=== PATIENT | male | born 1985 | race Caucasian/White ===

== ENCOUNTER 2025-06-20 20:42 | Observation (INO) | payer OTHER, SELFPAY ==
[2025-06-20] VITALS (8 sets, daily range): BP systolic 122–161; BP diastolic 75–94; BMI 32.0
[2025-06-20 11:34] LABS: INR 1.14; PT 14.7 Sec (11.4-14.6)
[2025-06-20 11:40] LABS: Hematocrit 44.7 % (39.0-52.0); Hemoglobin 15.2 g/dL (13.0-18.0); Mean Corp Hgb Conc. 34.0 g/dL (33.0-37.0); Mean Corpuscular Volume 87.1 fL (80.0-94.0); Nucleated Red Blood Cells % 0 % (-); Platelet Count 296 10^3/uL (130-400); Red Cell Dist. Width 13.2 % (11.5-14.5)
[2025-06-20 11:48] LABS: ALT (SGPT) 24 U/L (0-50); AST (SGOT) 22 U/L (17-59); Albumin 4.7 g/dl (3.5-5.0); Alkaline Phosphatase 45 U/L (38-126); Blood Urea Nitrogen 15 mg/dl (9-20); Calcium 9.6 mg/dl (8.4-10.2); Carbon Dioxide 28 mmol/L (22-30); Chloride 103 mmol/L (98-107); Glucose 93 mg/dl (70-99); Potassium 4.1 mmol/L (3.5-5.1); Sodium 136 mmol/L (135-145); Total Protein 7.7 g/dl (6.3-8.2); eGFR > 60.00
[2025-06-20 11:59] LABS: Troponin I < 0.012 ng/ml
[2025-06-20] MEDS: TORADOL 30 MG IV (16:27)
[2025-06-20 16:49] LABS: Lipase 76 U/L (23-300)
[2025-06-20 16:50] LABS: COVID-19 Antigen Negative (Negative); D-Dimer < 0.27 ug/mlFEU (0.00-0.50)
[2025-06-20 16:57] LABS: Troponin I 0.017 ng/ml
--- NOTE | 2025-06-20 17:47 | ED.GENMED ---
History of Present Illness
<Kaim Pabon PA-C - Last Filed: 06/21/25 01:03>
General
Chief Complaint: Chest Pain
Source: patient
Exam Limitations: none
Time Seen by Provider: 06/20/25 15:58
Nursing documentation reviewed up to this point in time: agreed with
History of Present Illness
History of Present Illness:
see MDM
Phy Exam
<Kami Pabon PA-C - Last Filed: 06/21/25 01:03>
Physical Exam
Physical Exam:
see MDM
Scores
<Kami Pabon PA-C - Last Filed: 06/21/25 01:03>
Heart Score for Chest Pain Patients
STEMI patient?: No
History: Moderately Suspicious
ECG: Nonspecific Repolarization
Age: </= 45 years
Risk Factors: No Risk Factors
Troponin: </= Normal Limit
Heart Score for Chest Pain Patients: 2
Heart Score Risk: 2.5% MACE over next 6 weeks
<Tim Castro MD - Last Filed: 06/23/25 08:04>
Heart Score for Chest Pain Patients
Heart Score for Chest Pain Patients: 2
Heart Score Risk: 2.5% MACE over next 6 weeks
Course
<Kami Pabon PA-C - Last Filed: 06/21/25 01:03>
Orders/Labs/Results
Orders:
Orders
06/20/25 Breakfast
Regular
At Your Request: Full Participation
06/20/25 10:48
EKG [Electrocardiogram (*1)] Urgent
Reason for Study: Chest Pain
EKG- Treatment ONCE
06/20/25 10:54
CR Chest - 2 Views Urgent
Comment:
Reason For Exam: CP
06/20/25 11:03
Complete Blood Count/With Diff Urgent
Comprehensive Metabolic Panel Urgent
Lipase Urgent
Comment: ADD ON
Prothrombin Time Urgent
Troponin I Urgent
06/20/25 16:11
Add On- LAB Urgent
Tests Added?: lipase
Electrocardiogram (*1) Urgent
Reason for Study: Chest Pain
EKG- Treatment ONCE
Ketorolac [Toradol] 30 mg IV NOW STA
06/20/25 16:25
COVID-19 Antigen Urgent
Source: Nasal Swab
D-Dimer Urgent
Troponin I Urgent
06/20/25 18:09
Colchicine 0.6 mg PO NOW STA
06/20/25 19:52
Admit/Transfer Patient As Directed
Co-Sign Provider:
Level of Care: Observation services
Assign to:: Telemetry
Physician / Group: Torsten
Diagnosis: Pericarditis
Reason for Telemetry: Chest Pain syndromes
Date to Stop Telemetry: 06/22/25
Time to Stop Telemetry: 11:00
PRN Pain Medication Management As Directed
May give lesser potent ordered pain med per pt: Yes
preference::
Protocol:: Medication orders for pain may be administered in a
manner that supports deferring to patient preference
when the pt is:
- Requesting an ordered lesser potent pain medication.
Least to most potent pain medications are defined
as: acetaminophen < NSAID < tramadol < opioids
(morphine, oxycodone, hydromorphone).
- Requesting a lesser dose of the same medication IF
ORDERED.
- Requesting a less intrusive route of administration
if both routes are prescribed by the provider (PO <
IV).
06/20/25 19:53
Code Status As Directed
Resuscitation Status: Full Code
06/20/25 21:12
Acetaminophen [Tylenol] 650 mg PO Q4HPRN PRN
Ketorolac [Toradol] 15 mg IV Q6HPRN PRN
06/20/25 21:12
CARDIOLOGY CONSULT Routine
Consulting Provider: Rafita Jacob
Was physician already notified: Yes
Reason for consult: Pericarditis
TSH Reflex To Free T4 Routine
Activity As Directed
Activity Level: Ambulate
EKG with chest pain [ECG as needed] As Directed
ECG as needed for:: Chest Pain
Pneumatic Compression Sleeves As Directed
Type: Knee high
Vital Signs As Directed
Frequency: Per unit guidelines
Oxygen Therapy [O2 Therapy] [RESP] Routine
Titrate/Wean O2 to maintain O2 sat greater than (%): 94
DX Deep Vein Thrombosis Video Routine
06/20/25 22:00
Ibuprofen [Motrin] 800 mg PO TID
06/21/25 06:00
Echo 2D MMode Doppler [Echo 2D MMode Color/Doppler] IN AM
Reason for Study: Pericarditis
06/21/25 06:41
Basic Metabolic Panel IN AM
Cardiovascular Evaluation IN AM
Complete Blood Count/No Diff IN AM
06/21/25 08:00
Colchicine 0.6 mg PO BID
Pantoprazole [Protonix] 40 mg PO DAILY
06/22/25 11:00
DC Protocol for Telemetry ONCE
Abnormal Lab Results
06/20/25
11:03
MPV 10.7 H fL
(7.4-10.4)
Absolute Monos (auto) 0.8 H 10^3/uL
(0.1-0.6)
Monocytes % 10.9 H %
(1.7-9.3)
Eosinophils % 7.9 H %
(0-6)
PT 14.7 H Sec
(11.4-14.6)
06/20/25 11:03
06/20/25 11:03
Vital Signs
Initial and Last Documented VS:
Initial Vital Signs
Temp Pulse Resp BP Pulse Ox
97.7 F 75 17 161/94 99
06/20/25 10:53 06/20/25 10:53 06/20/25 10:53 06/20/25 10:53 06/20/25 10:53
Last Documented Vital Signs
Temp Pulse Resp BP Pulse Ox
97.9 F 69 16 128/72 98
06/21/25 12:00 06/21/25 12:00 06/21/25 12:00 06/21/25 12:00 06/21/25 12:00
<Tim Castro MD - Last Filed: 06/23/25 08:04>
Orders/Labs/Results
Orders:
Orders
06/20/25 Breakfast
Regular
At Your Request: Full Participation
06/20/25 10:48
EKG [Electrocardiogram (*1)] Urgent
Reason for Study: Chest Pain
EKG- Treatment ONCE
06/20/25 10:54
CR Chest - 2 Views Urgent
Comment:
Reason For Exam: CP
06/20/25 11:03
Complete Blood Count/With Diff Urgent
Comprehensive Metabolic Panel Urgent
Lipase Urgent
Comment: ADD ON
Prothrombin Time Urgent
Troponin I Urgent
06/20/25 16:11
Add On- LAB Urgent
Tests Added?: lipase
Electrocardiogram (*1) Urgent
Reason for Study: Chest Pain
EKG- Treatment ONCE
Ketorolac [Toradol] 30 mg IV NOW STA
06/20/25 16:25
COVID-19 Antigen Urgent
Source: Nasal Swab
D-Dimer Urgent
Troponin I Urgent
06/20/25 18:09
Colchicine 0.6 mg PO NOW STA
06/20/25 19:52
Admit/Transfer Patient As Directed
Co-Sign Provider:
Level of Care: Observation services
Assign to:: Telemetry
Physician / Group: Torsten
Diagnosis: Pericarditis
Reason for Telemetry: Chest Pain syndromes
Date to Stop Telemetry: 06/22/25
Time to Stop Telemetry: 11:00
PRN Pain Medication Management As Directed
May give lesser potent ordered pain med per pt: Yes
preference::
Protocol:: Medication orders for pain may be administered in a
manner that supports deferring to patient preference
when the pt is:
- Requesting an ordered lesser potent pain medication.
Least to most potent pain medications are defined
as: acetaminophen < NSAID < tramadol < opioids
(morphine, oxycodone, hydromorphone).
- Requesting a lesser dose of the same medication IF
ORDERED.
- Requesting a less intrusive route of administration
if both routes are prescribed by the provider (PO <
IV).
06/20/25 19:53
Code Status As Directed
Resuscitation Status: Full Code
06/20/25 21:12
Acetaminophen [Tylenol] 650 mg PO Q4HPRN PRN
Ketorolac [Toradol] 15 mg IV Q6HPRN PRN
06/20/25 21:12
CARDIOLOGY CONSULT Routine
Consulting Provider: Rafita Jacob
Was physician already notified: Yes
Reason for consult: Pericarditis
TSH Reflex To Free T4 Routine
Activity As Directed
Activity Level: Ambulate
EKG with chest pain [ECG as needed] As Directed
ECG as needed for:: Chest Pain
Pneumatic Compression Sleeves As Directed
Type: Knee high
Vital Signs As Directed
Frequency: Per unit guidelines
Oxygen Therapy [O2 Therapy] [RESP] Routine
Titrate/Wean O2 to maintain O2 sat greater than (%): 94
DX Deep Vein Thrombosis Video Routine
06/20/25 22:00
Ibuprofen [Motrin] 800 mg PO TID
06/21/25 06:00
Echo 2D MMode Doppler [Echo 2D MMode Color/Doppler] IN AM
Reason for Study: Pericarditis
06/21/25 06:41
Basic Metabolic Panel IN AM
Cardiovascular Evaluation IN AM
Complete Blood Count/No Diff IN AM
06/21/25 08:00
Colchicine 0.6 mg PO BID
Pantoprazole [Protonix] 40 mg PO DAILY
06/22/25 11:00
DC Protocol for Telemetry ONCE
Abnormal Lab Results
06/20/25
11:03
MPV 10.7 H fL
(7.4-10.4)
Absolute Monos (auto) 0.8 H 10^3/uL
(0.1-0.6)
Monocytes % 10.9 H %
(1.7-9.3)
Eosinophils % 7.9 H %
(0-6)
PT 14.7 H Sec
(11.4-14.6)
06/20/25 11:03
06/20/25 11:03
Vital Signs
Initial and Last Documented VS:
Initial Vital Signs
Temp Pulse Resp BP Pulse Ox
97.7 F 75 17 161/94 99
06/20/25 10:53 06/20/25 10:53 06/20/25 10:53 06/20/25 10:53 06/20/25 10:53
Last Documented Vital Signs
Temp Pulse Resp BP Pulse Ox
97.9 F 69 16 128/72 98
06/21/25 12:00 06/21/25 12:00 06/21/25 12:00 06/21/25 12:00 06/21/25 12:00
<Kami Pabon PA-C - Last Filed: 06/21/25 01:03>
MDM/Problems Addressed
Differential Diagnosis Includes:
see MDM
MDM/Problems Addressed:
Note:
CHIEF COMPLAINT(S)
Chest pain and shortness of breath
HISTORY OF PRESENT ILLNESS
The patient is a 40-year-old male who presents with chest pain and shortness of breath. He reports that the chest pain began on 3 days ago and describes it as mild and located centrally. The pain initially seemed posture-related, but on Thursday, when
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 The patient also reported the development of wheezing and increased difficulty breathing, particularly with exertion, such as carrying mailbags. He experiences pain when taking a deep
breath, although it is not severely painful, and it remains constant.
The patient noted an onset of nausea the day before the pain began, which led to vomiting, but he was able to attend work the following day. He reports episodes of diarrhea over the weekend, though he is able to control it and reach the bathroom
without incidents of incontinence. The diarrhea seems stable without changes in frequency or volume, and there is no presence of blood or black stools.
The pain intensity varies, increasing to a level of significant discomfort by the end of a work shift, particularly if carrying heavy loads. However, the pain subsides slightly when at rest, with a self-rated severity of two out of ten when lying
down.
There have been no recent injuries, and he denies any recent travels or periods of immobility that might suggest other causes such as a deep vein thrombosis. He also denies fever or chills but reports a slight cough. The patient does not smoke but
uses chewing tobacco. There is no significant family history of heart disease.
CHRONIC MEDICAL CONDITIONS SIGNIFICANTLY AFFECTING CARE
No chronic medical conditions were reported by the patient. This is his first visit to the emergency department.
SOCIAL HISTORY
The patient uses chewing tobacco but does not smoke.
PHYSICAL EXAM
GENERAL: Alert , in no apparent distress
EYE: pupils equal and reactive
NECK: Supple
ENT: o/p clr, mmm.
CARDIAC: Regular rate and rhythm .
LUNGS: Clear breath sounds bilaterally, no acute respiratory distress, no wheezes/rales/rhonchi
ABDOMEN: Soft, without focal tenderness, no r/g, no cvat, normal bowel sounds
NEUROLOGICAL: Alert and oriented, no focal neuro deficits
SKIN: Warm and dry, skin intact.
MUSCULOSKELETAL: No edema, well perfused. neg carey's sign
PSYCH: Normal and appropriate interaction.
- Nursing notes reviewed and vital signs reviewed.
PLAN
- Initiate intravenous access and obtain blood samples for laboratory analysis to rule out myocardial infarction, pulmonary embolism, and pancreatitis.
- Perform an electrocardiogram (ECG) to further evaluate cardiac status.
- Consider using non-narcotic pain medication such as Toradol to manage potential musculoskeletal inflammation.
- If emergent conditions are ruled out, arrange an outpatient follow-up with a rail track maintainer to investigate potential cardiac causes for the symptoms.
- Offer ibuprofen or acetaminophen for pain relief, which the patient has the option to decline.
DIFFERENTIAL DIAGNOSIS
The Differential Diagnosis includes, in no particular order and is not limited to:
1. Myocardial infarction
2. Pulmonary embolism
3. Musculoskeletal pain (e.g., costochondritis)
4. Gastroesophageal reflux disease (GERD)
5. Pneumonia
6. Viral respiratory infection
7. Pleural effusion
8. Pericarditis
9. Panic attack or anxiety-related dyspnea
10. Aortic dissection
40 y/o M
chest discomfort, pleuritic, worse with psition and exertion
no cardiac history
no smoking
no FHX of cad
mild viral symptoms
1st ekg has artifact but no concerning findings
first trop 0.012
pending d dimer, 2nd trop/ekg, cxr
CARE-UPDATE
06/20/25 - 17:48
The patients chest discomfort and shortness of breath have slightly worsened over the past two to three days. He exhibits slight rattling in the lungs and diarrhea, suggestive of a possible viral syndrome but without cough or fever. The first EKG
displayed a artifact in V1 and V2 with no T-wave inversions. A notable increase was observed in troponin levels from 0.012 to 0.017, alongside minimally diffusely elevated ST segments. The Emergency Department attending suggested consulting
cardiology, suspecting viral pericarditis, and the patient received toradol. Plan includes observation under cardiology guidance, considering colchicine, with a negative D-Dimer result. The patients blood pressure remains normal, and he does not
require supplemental oxygen, appearing comfortable at rest. Lung hodgson are clear, and there is no edema present. No heart murmur detected.
<Kami Pabon PA-C - Last Filed: 06/21/25 01:03>
*Pulse Oximetry
SaO2: 97
Oxygen Mode of Delivery: Room air
Patient hypoxic: no (97)
*Critical Care Note
Total Time (30-74mins, 75-104mins- exclusive of procedures): Not Applicable
ED Attending Note
<Kami Pabon PA-C - Last Filed: 06/21/25 01:03>
-
Portions of this chart may have been created with voice recognition software.� Occasional wrong word or��sound alike� substitutions may have occurred due to the inherent limitations of voice recognition software.
<Tim Castro MD - Last Filed: 06/23/25 08:04>
ED Attending Note
Patient seen and examined by attending physician: Yes
ED Attending Note:
Patient without any significant past medical history, presents to ED secondary to intermittent chest pain along with shortness of breath over the past 3 days. 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 Chest
pain described as sharp, in the middle chest, nonradiating, worse with movement and deep inspiration. Denies associated dizziness/weakness/diaphoresis/nausea. Denies back pain. Denies leg pain or swelling. Denies recent travel or surgery.
Patient does report having had diarrhea yesterday. Denies sick contact. Denies previous history of similar symptoms. Patient denies smoking or drinking alcohol. There is no family history of early heart disease or blood clots.
Physical Exam
General: mild distress, not acutely ill. afebrile
Head: nc/at. eomi
Neck: supple. normal range of motion
Heart: s1/s2 regular rate and rhythm
Lungs: no acute respiratory distress. clear bilaterally. chest wall nontender to palpation
Abdomen: normal bowel sounds. not tender.
Neuro: alert and oriented x 3. no focal neurological deficits
Skin: no rash
Psychiatric: well kept. interactive and cooperative
Extremities: no edema. no calf tenderness.
History, exam, and EKG concerning for potential pericarditis. Repeat troponin with minimal elevation. As patient remains symptomatic, patient will be admitted for further evaluation treatment. Discussed with on-call cardiology, , who
agrees with plan for admission to hospitalist service on colchicine.
Discharge Plan
Departure
Patient Disposition: Admit
Date of Disposition: 06/20/25
Time of Disposition: 18:09
Admit to: Telemetry
Presentation/result/management discussed w/ accepting MD/DO: Hospitalist
Condition: Fair
Covid-19: Not Applicable
Discharge Problem:
Chest pain, Pericarditis
Interventions
Interventions:
*General Assessment Last Done: 06/20/25 10:55
*Neglect/Abuse Screening Last Done: 06/20/25 10:55
*ED COVID-19 Vaccine History Last Done: 06/20/25 10:55
*ED Influenza Vaccine History Last Done: 06/20/25 10:55
[facility] Risk Assessment Tool Last Done: 06/20/25 19:24
*Risk Screen - Suicide (C-SSRS) Last Done: 06/20/25 10:55
*Nursing Disposition Last Done: 06/20/25 21:08
ED- Cardiac Assessment Last Done: 06/20/25 16:30
Discharge Date and Time
Discharge Date/Time: 06/20/25 21:08
[2025-06-20] MEDS: COLCHICINE 0.6 MG PO (18:38)
--- NOTE | 2025-06-20 20:45 | HPS.HSE ---
Family Physician
-
Family Physician: Judy Faith
Chief Complaint
-
Chest pain
History of Present Illness
Patient is a 40y M with no significant PMH who presents to ED complaining of chest pain. Patient states that he started with left-sided chest pain on Thursday. Pain seemed positional in nature and he thought it may be due to his posture. He
has had some mild nasal congestion and some loose stools recently. No fevers / chills, cough, sore throat, etc. His chest discomfort seemed to increase over the past few days. Notably worse with activity, deep breathing and certain movements.
Patient notes that he felt lightheaded at times during activity. 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
Medical History
Past Medical History
Past Medical History: Reports None
Past Surgical History: Reports None
Social History
Tobacco: Non-smoker (uses smokeless tobacco, 'snuff')
Alcohol: None
Drug: None
Family History
Family History: Not pertinent
Allergies / Home Medications
Allergies reflects when Allergies were last updated in [facility].
Home Medications with original date entered in [facility]
Allergy/Medication List:
Allergies
Allergy/AdvReac Type Severity Reaction Status Date / Time
No Known Allergies Allergy Unverified 06/20/25 10:54
Home Medications
No Meds [No Current Medications] 06/20/25
Review of Systems
-
History Source: Patient
A 12 point ROS was completed and negative except as noted: Yes
Constitutional: Denies Fever or Chills
Respiratory: Reports Trouble Breathing; Denies Cough
Cardiac: Reports Chest Pain; Denies Diaphoresis, Palpitations or Syncope
Abdomen/GI: Denies Abdominal Pain, Nausea, Vomiting or Diarrhea
: Denies Dysuria or Frequency
Musculoskeletal: Denies Joint Pain or Edema
Neurological: Denies Dizzy or Headache
Psych: Denies Depression or Anxiety
Physical Exam
Vital Signs
Vital Signs
Temp Pulse Resp BP Pulse Ox
97.7 F 85 17 128/84 97
06/20/25 10:53 06/20/25 20:15 06/20/25 10:53 06/20/25 20:00 06/20/25 20:15
Physical Exam
General: Other (40y M in no acute distress.)
HEENT: Moist mucous membranes and PERRLA
Respiratory: Clear; No Wheezes, Rales or Rhonchi
Cardiac: S1/S2 and Regular Rhythm; No Murmur
GI: Soft, Non Tender, Non Distended and Normal Bowel Sounds
Musculoskeletal: No Clubbing, No Cyanosis and No Edema
Neuro: AO x 3
Laboratory Results
-
06/20/25 11:03
06/20/25 11:03
Laboratory Results
PT 14.7 Sec (11.4-14.6) H 06/20/25 11:03
INR 1.14 06/20/25 11:03
Total Bilirubin 0.5 mg/dl (0.2-1.3) 06/20/25 11:03
AST 22 U/L (17-59) 06/20/25 11:03
ALT 24 U/L (0-50) 06/20/25 11:03
Alkaline Phosphatase 45 U/L (38-126) 06/20/25 11:03
Troponin I 0.017 ng/ml D 06/20/25 16:25
Lipase 76 U/L (23-300) 06/20/25 11:03
Impression/Plan
-
A/P: Patient is a 40y M with no significant PMH who presents to ED complaining of chest pain x 4 days.
Pericarditis
- Observe overnight for further evaluation and treatment.
- Begin NSAIDs and colchicine.
- Cardiology evaluation.
- Echo in the AM.
- Follow for clinical improvement.
- Follow serial troponin to peak.
DVT Prophylaxis: SCDs
GI Prophylaxis: Start daily PPI while on NSAIDs + colchicine.
Code Status: Full
--- NOTE | 2025-06-20 21:49 | PTCARENOTE ---
Pt admit from ED via stretcher. Ambulated into room independently. Pt states he's had 3 episodes of diarrhea today which is abnormal for him. Placed on enhanced precautions. [facility] notified.
[2025-06-20] MEDS: MOTRIN 800 MG PO (22:02)
[2025-06-20 23:22] LABS: Troponin I 0.014 ng/ml
[2025-06-21 03:05] VITALS: BP 136/78
[2025-06-21 07:04] LABS: Hematocrit 42.7 % (39.0-52.0); Hemoglobin 14.4 g/dL (13.0-18.0); Mean Corp Hgb Conc. 33.7 g/dL (33.0-37.0); Mean Corpuscular Volume 87.7 fL (80.0-94.0); Platelet Count 259 10^3/uL (130-400); Red Cell Dist. Width 13.2 % (11.5-14.5)
[2025-06-21 07:19] LABS: Blood Urea Nitrogen 20 mg/dl (9-20); Calcium 8.8 mg/dl (8.4-10.2); Carbon Dioxide 26 mmol/L (22-30); Chloride 103 mmol/L (98-107); Estimated Creatinine Clearance > 125 ml/min; Glucose 98 mg/dl (70-99); HDL Cholesterol 45 mg/dl; LDL Cholesterol, Calculated 155 mg/dl; Potassium 4.3 mmol/L (3.5-5.1); Sodium 135 mmol/L (135-145); Very Low Density Lipoprotein 12 mg/dl (0-30); eGFR > 60.00
[2025-06-21] MEDS: COLCHICINE 0.6 MG PO (07:36)
[2025-06-21] MEDS: MOTRIN 800 MG PO (07:36)
[2025-06-21] MEDS: PROTONIX 40 MG PO (07:36)
[2025-06-21 08:00] VITALS: BP 121/75
--- NOTE | 2025-06-21 08:30 | W.PN.HOSP.TC ---
Today's Communication/Plan
-
Discharge planning today
Assessment / Plan
Assessment / Plan
Physical exam:
General: Well Developed, Well Nourished and No Apparent Distress
HEENT: Normocephalic, Atraumatic and Moist Mucous Membranes
Respiratory: Clear to Auscultation; Negative Wheezes, Rales or Rhonchi
Cardiac: Regular Rhythm and S1/S2
GI: Soft, Nontender and Nondistended
Musculoskeletal: No Clubbing, No Cyanosis and No Edema
Neuro: Awake, Alert and Oriented, no neurological deficits
Psych: Calm
A/P:
Pericarditis
- Observe overnight for further evaluation and treatment.
- Begin NSAIDs and colchicine.
- Cardiology evaluation appreciated
- Echo reviewed results
- Cardiology cleared her for discharge today
DVT Prophylaxis: SCDs
GI Prophylaxis: Start daily PPI while on NSAIDs + colchicine.
Code Status: Full
Anticipated Discharge: Today
Subjective/Interval History
-
Date of Service: June 21, 2025
Patient pain much better overall.
Objective Data
-
Labs:
Laboratory Results
06/21/25
06:41
WBC 7.9
Hgb 14.4
Hct 42.7
Plt Count 259
Sodium 135
Potassium 4.3
Chloride 103
Carbon Dioxide 26
BUN 20
Creatinine 0.8
Glucose 98
Calcium 8.8
Vital Signs:
Vital Signs
Temp Pulse Resp BP Pulse Ox
98.0 F 72 16 121/75 98
06/21/25 08:00 06/21/25 08:00 06/21/25 08:00 06/21/25 08:00 06/21/25 08:00
--- NOTE | 2025-06-21 08:49 | CON.CAR ---
Addendum entered and electronically signed by Rafita Jacob DO 06/21/25 14:21:
I saw and examined the patient.
The Tank Setter Helper's note was reviewed and I agree with the note.
Comment:
Plan:
Reviewed pericarditis with patient and his father. He was given patient literature regarding pericarditis
Continue colchicine 0.6 mg twice daily for 3 months.
Transition Motrin to 600 mg twice daily. for 1 week
Echo was reviewed and unremarkable.
He will return to work on June 26 discussed restrictions.
Outpatient cardiac follow-up arranged
Discussed with primary service.
Original Note:
Consultation
Consultation Request
Date/Time Consultation Requested: 06/20/2025 at 2112
Date/Time Consultation Performed: 06/21/2025 at 0835
Requesting Provider: Dr. Perez
Performing Provider: Dr. Jacob
Reason for Consultation: Chest pain
Medical History
-
History of Present Illness:
Patient came to the ER yesterday with chest pain and was admitted with possible pericarditis and now cardiology is consulted. 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
discomfort in the left side of his chest, it seemed to be positional. Then he went to work on Thursday where he walks a postal route in [place] and while out in the cold and while walking his route he felt similar pain on the left side of his chest
that got worse with activity during the day. Patient felt like he could not take a deep breath, deep breath would cause more pain. He felt better with resting. Patient also reports increased discomfort with prolonged conversations. Patient has
never had a discomfort like that before. Patient did not notice that his pain was necessarily positional and denies pain with laying flat. Patient told his father about his symptoms and he was urged to come to the ER and so he did yesterday.
Troponins have been serially normal. ECG reviewed by me looks like SR without acute ST changes. Patient reports improved discomfort since admission following initiation of ibuprofen and colchicine. Patient also reports having a mild GI bug
described as diarrhea without vomiting in the last week. No fevers or chills.
PMH:
Hyperlipidemia
Chewing tobacco use
Past Medical History
Past Medical History: Other (In HPI)
Past Surgical History: None
Social History
Tobacco: Other (Patient uses chewing tobacco)
Alcohol: None
Drug: None
Personal: Single
Living: Alone
Employment: Employed (mail carrier, he walks his route and [place])
Family History
Family History: Cancer (Family history of prostate cancer) and Other (No family history of CAD, he is the oldest of 5)
Allergies / Home Medications
Allergy/AdvReac Type Severity Reaction Status Date / Time
No Known Allergies Allergy Unverified 06/20/25 10:54
�Medication �Instructions �Recorded �Confirmed �Type
No Meds [No Current Medications] 06/20/25 06/20/25 History
Review of Systems
-
History Source: Patient
All other systems: Negative unless noted
Physical Exam
Vital Signs
Temp Pulse Resp BP Pulse Ox
98.0 F 72 16 121/75 98
06/21/25 08:00 06/21/25 08:00 06/21/25 08:00 06/21/25 08:00 06/21/25 08:00
GEN: NAD, AAO x 3
HEENT: EOMI, MMM
LUNGS: RA. CTA B/L, no wheeze
CV: SR on telemetry. Reg, S1/S2, no murmur
ABD: ND
EXT: No edema B/L LE. +2 PT pulses B/L
NEURO: Gross non-focal
SKIN: No rash
Lab Results
06/21/25 06:41
06/21/25 06:41
Troponin I 0.014 ng/ml 06/20/25 22:30
Impression / Plan
-
PCP: Dr. Faith at [facility]
Cardiology: None prior to admission
Impression:
Admitted with chest pain 06/20/2025
Chest pain, possible pericarditis
Hyperlipidemia
Chewing tobacco use
Echo 06/21/2025: Study pending
Plan:
-Patient came to the ER yesterday with chest pain and was admitted with possible pericarditis and now cardiology is consulted. 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
discomfort in the left side of his chest, it seemed to be positional. Then he went to work on Thursday where he walks a postal route in [place] and while out in the cold and while walking his route he felt similar pain on the left side of his chest
that got worse with activity during the day. Patient felt like he could not take a deep breath, deep breath would cause more pain. He felt better with resting. Patient also reports increased discomfort with prolonged conversations. Patient has
never had a discomfort like that before. Patient did not notice that his pain was necessarily positional and denies pain with laying flat. Patient told his father about his symptoms and he was urged to come to the ER and so he did yesterday.
Troponins have been serially normal. ECG reviewed by me looks like SR without acute ST changes. Patient reports improved discomfort since admission following initiation of ibuprofen and colchicine. Patient also reports having a mild GI bug
described as diarrhea without vomiting in the last week. No fevers or chills.
-ECG reviewed by me is SR without acute ST changes
-Troponin levels are serially normal, labs reviewed by me
-Patient's symptoms sound most consistent with pericarditis including recent viral GI illness. Patient reports symptomatic improvement with initial treatment including ibuprofen and colchicine.
-Check echocardiogram to look for pericardial effusion and check wall motion. Echo order confirmed by me.
-Patient was COVID-negative on 06/20/2025
-Labs reviewed by me and LDL was 155 on 06/21/2025. Patient reports a history of hyperlipidemia that improved with diet changes in 2023, but patient missed his annual physical this year. Patient plans to work on diet changes which have worked in
the past and then follow-up with his PCP in the next few months.
-Patient information printed and provided to the patient regarding pericarditis
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
[2025-06-21 12:00] VITALS: BP 128/72
--- NOTE | 2025-06-21 12:45 | W.PN.UPDATE ---
Update Note
Progress Note Update
Preliminary echocardiogram report shows preserved EF with trivial pericardial effusion. Patient is stable for discharge to home with treatment of presumed pericarditis. Cardiology medication changes made to the discharge instructions by me.
Cardiology follow-up added to discharge instructions. Patient was also given a note for work that he may return on 06/26/2025 and to avoid repetitive motion and lifting greater than 50 pounds. No work provided to the patient by cardiology.
TT communication with hospitalist attending the patient is stable for discharge from a cardiovascular perspective.
--- NOTE | 2025-06-21 12:52 | W.DCSUMMARY ---
Discharge Summary
Discharge Data
Date of Admission: 06/20/25
Date of Discharge: 06/21/25
-
Pending Results: No
Hospital Course
Patient 40 years old male with no significant past medical history came into the hospital chest pain. Cardiology consulted. Patient symptoms consistent with pericarditis. Patient was started on NSAIDs and colchicine. He had an echocardiogram and
no pericardial effusion or wall motion abnormalities or valvulopathy and EF 55 to 60%. Cardiology cleared him for discharge. Patient will be discharged in stable condition today.
Discharge Plan
-
Patient Disposition: Home (Routine Discharge)
Discharge Diagnosis/Procedures: Pericarditis, likely virally mediated
Condition: Good
Diet: Regular
Activity: No strenuous activity
Driving Restrictions: As prior to admission
Bathing Restrictions: None
Stand Alone Forms: Return to Work
Referrals:
Judy Faith MD [Family Provider, Internal Medicine]
Rafita Jacob DO [Active, Cardiology] - 07/07/25 9:40 am
Referral Note: You have an appointment to see Dr. Jacob's physician speech therapy assistant, Harriet, on 07/07/2025 at 9:40 AM. Please call [phone] if need to reschedule
Additional Discharge Medication Instructions: - Take ibuprofen (Motrin) 600 mg (three 200 mg tablets) twice a day with food for 2 weeks, then stop
- Take colchicine 0.6 mg twice daily for 3 months and then stop
- Take Protonix (pantoprazole) 40 mg once a day for 3 months and then stop
Prescriptions:
New
pantoprazole 40 mg Tablet,Delayed Release (/Ec)
40 mg PO DAILY Qty: 30 2RF
ibuprofen 600 mg Tablet
600 mg PO BID Qty: 28 0RF
colchicine 0.6 mg Tablet
0.6 mg PO BID Qty: 60 2RF
Discharge Orders:
Discharge Patient (As Directed); Ordered 12/17/25
Ordered By: Rodrigue Perez
Discharge Date and Time
Print Language: JAPANESE
--- NOTE | 2025-06-21 13:59 | CM ---
Case Management attempted to complete IA this am; patient was off the unit for testing
Patient was discharged to home by nursing before strategic marketing manager was able to meet with patient to discuss discharge planning
Plan: Discharged to home, no needs
== END 2025-06-21 13:53 | disposition home or self-care (01) ==
LOC: 1 ACUTE 20:42
PROVIDERS: Emergency Medicine; Physician Assistant; ADMITTING PHYSICIAN Hospitalist; ATTENDING PHYSICIAN Hospitalist; CONSULT PHYSICIAN Nuclear Medicine Nuclear Cardiology; EMERGENCY PHYSICIAN Emergency Medicine; FAMILY PHYSICIAN Internal Medicine
DX: I31.9 Disease of pericardium, unspecified (principal); R07.9 Chest pain, unspecified; Z79.899 Other long term (current) drug therapy; Z72.0 Tobacco use; E78.5 Hyperlipidemia, unspecified
CPT/HCPCS: 71046; 80048; 80053; 80061; 83690; 84443; 84484; 85025; 85027; 85379; 85610; 87811; 93005; 93306; 96374; 99285; G0378